=== PATIENT | male | born 1985 | race Caucasian/White ===

== ENCOUNTER 2018-06-19 14:31 | Emergency (ER) | payer OTHER ==
[~2018-06-19] VITALS: Ht 167.6 cm; Wt 83.9 kg
[2018-06-19 14:39] VITALS: Ht 167.6 cm; Wt 83.9 kg
[2018-06-19 17:25] VITALS: BP 118/74
== END 2018-06-19 17:25 | disposition home or self-care (01) ==
LOC: ED 14:31
DX: S92.132A Displaced fracture of posterior process of left talus, initial encounter for closed fracture (principal); Z88.0 Allergy status to penicillin; Z91.041 Radiographic dye allergy status; W18.39XA Other fall on same level, initial encounter; Y93.89 Activity, other specified; Y92.89 Other specified places as the place of occurrence of the external cause; Y99.8 Other external cause status
CPT/HCPCS: G0500; J2405; J3010; J3490; J7030; Q0092